=== PATIENT | male | born 1985 | race Caucasian/White ===

== ENCOUNTER 2017-10-13 22:44 | Inpatient (IN) | payer BC ==
[~2017-10-13] VITALS: Ht 165.1 cm; Wt 74.4 kg
[2017-10-13 23:40] LABS: BASOPHIL % 0.1 % (0-2); PLATELET COUNT 322 x10^3mcL (130-400); RED CELL DISTRIBUTION WIDTH 12.7 % (11.5-14.5)
[2017-10-13 23:54] LABS: ALBUMIN 3.7 g/dL (3.4-5.0); BILIRUBIN TOTAL 0.9 mg/dL (0.20-1.00); CARBON DIOXIDE 26.5 mmol/L (21-32); POTASSIUM SERUM 4.8 mmol/L (3.5-5.1); TOTAL PROTEIN, SERUM 6.5 g/dL (6.4-8.2)
[2017-10-14] VITALS (11 sets, daily range): BP systolic 109–135; BP diastolic 43–75
[2017-10-14] LABS: CALCIUM 8.2 mg/dL (8.5-10.1)
[2017-10-14] MEDS ORDERED: PANTOPRAZOLE SO40 M1 PO (02:31)
[2017-10-14] MEDS ORDERED: WELLBUTRIN XL150 M1 PO (02:31)
[2017-10-14 03:46] LABS: BASOPHIL % 0.1 % (0-2); PLATELET COUNT 264 x10^3mcL (130-400); RED CELL DISTRIBUTION WIDTH 12.4 % (11.5-14.5)
[2017-10-14 04:02] LABS: T3 TOTAL 0.81 ng/mL
[2017-10-14 04:33] LABS: FREE T4 1.35 ng/dL (0.76-1.46); T4(THYROXINE) 9.9 ug/dL (4.7-13.3)
[2017-10-14 05:34] LABS: MAGNESIUM 2.5 mg/dL (1.8-2.4)
[2017-10-14 05:35] LABS: CHOLESTEROL/HDL RATIO 2.2
[2017-10-14 06:57] LABS: BASOPHIL % 0.2 % (0-2); PLATELET COUNT 260 x10^3mcL (130-400); RED CELL DISTRIBUTION WIDTH 12.9 % (11.5-14.5)
[2017-10-14 13:15] LABS: PLATELET COUNT 216 x10^3mcL (130-400); RED CELL DISTRIBUTION WIDTH 12.8 % (11.5-14.5)
[2017-10-14 13:30] LABS: BASOPHIL % 0 % (0-2)
[2017-10-14 16:47] LABS: ALKALINE PHOSPHATASE 46 U/L (46-116); ALT/SGPT 32 U/L (16-63); AST/SGOT 16 U/L (15-37); BILIRUBIN TOTAL 0.7 mg/dL (0.20-1.00); CALCIUM 7.6 mg/dL (8.5-10.1); CARBON DIOXIDE 28.3 mmol/L (21-32); CHLORIDE SERUM 103 mmol/L (98-107); CREATININE SERUM 1.3 mg/dL (0.7-1.3); GFR1 > 60 mL/min; GLUCOSE SERUM 116 mg/dL (74-106); POTASSIUM SERUM 4.4 mmol/L (3.5-5.1); SODIUM SERUM 134 mmol/L (136-145)
[2017-10-14 16:52] LABS: ALBUMIN 3.1 g/dL (3.4-5.0); TOTAL PROTEIN, SERUM 5.5 g/dL (6.4-8.2)
[2017-10-14 20:41] LABS: BASOPHIL % 0.3 % (0-2); PLATELET COUNT 158 x10^3mcL (130-400); RED CELL DISTRIBUTION WIDTH 12.7 % (11.5-14.5)
[2017-10-14 20:58] LABS: ALKALINE PHOSPHATASE 41 U/L (46-116); ALT/SGPT 30 U/L (16-63); AST/SGOT 16 U/L (15-37); BILIRUBIN TOTAL 0.6 mg/dL (0.20-1.00); CALCIUM 7.6 mg/dL (8.5-10.1); CARBON DIOXIDE 26.9 mmol/L (21-32); CHLORIDE SERUM 105 mmol/L (98-107); GFR1 > 60 mL/min; GLUCOSE SERUM 114 mg/dL (74-106); PHOSPHOROUS 2.6 mg/dL (2.5-4.9); POTASSIUM SERUM 4.6 mmol/L (3.5-5.1); SODIUM SERUM 134 mmol/L (136-145)
[2017-10-14 21:01] LABS: ALBUMIN 2.9 g/dL (3.4-5.0); TOTAL PROTEIN, SERUM 5.3 g/dL (6.4-8.2)
[2017-10-14 22:29] LABS: PLATELET COUNT 183 x10^3mcL (130-400); RED CELL DISTRIBUTION WIDTH 12.8 % (11.5-14.5)
[2017-10-14 22:31] LABS: BASOPHIL % 0 % (0-2)
[2017-10-15] VITALS (7 sets, daily range): BP systolic 123–148; BP diastolic 65–82
[2017-10-15 00:45] LABS: microscopic required? NO
[2017-10-15 00:52] LABS: urine erythrocyte NEGATIVE (NEGATIVE)
[2017-10-15 01:17] LABS: AMPHETAMINE QUAL UR NONE DETECTED (NEG <=1000)
[2017-10-15 03:56] LABS: PLATELET COUNT 167 x10^3mcL (130-400); RED CELL DISTRIBUTION WIDTH 13.1 % (11.5-14.5)
[2017-10-15 03:57] LABS: BASOPHIL % 0.2 % (0-2)
[2017-10-15 04:09] LABS: CALCIUM 8.1 mg/dL (8.5-10.1); CHLORIDE SERUM 102 mmol/L (98-107); CREATININE SERUM 1.1 mg/dL (0.7-1.3); GFR1 > 60 mL/min; GLUCOSE SERUM 110 mg/dL (74-106); PHOSPHOROUS 3.8 mg/dL (2.5-4.9); POTASSIUM SERUM 4.4 mmol/L (3.5-5.1); SODIUM SERUM 136 mmol/L (136-145)
[2017-10-15 08:43] LABS: BASOPHIL % 0.3 % (0-2); PLATELET COUNT 150 x10^3mcL (130-400); RED CELL DISTRIBUTION WIDTH 13.2 % (11.5-14.5)
[2017-10-15 09:36] LABS: ALKALINE PHOSPHATASE 42 U/L (46-116); ALT/SGPT 31 U/L (16-63); AST/SGOT 19 U/L (15-37); BILIRUBIN TOTAL 0.7 mg/dL (0.20-1.00); CARBON DIOXIDE 31.4 mmol/L (21-32); CHLORIDE SERUM 103 mmol/L (98-107); GFR1 > 60 mL/min; GLUCOSE SERUM 93 mg/dL (74-106); POTASSIUM SERUM 3.9 mmol/L (3.5-5.1); SODIUM SERUM 136 mmol/L (136-145)
[2017-10-15 09:37] LABS: ALBUMIN 3.1 g/dL (3.4-5.0); TOTAL PROTEIN, SERUM 5.8 g/dL (6.4-8.2)
[2017-10-15 19:57] LABS: BASOPHIL % 0.2 % (0-2); PLATELET COUNT 168 x10^3mcL (130-400); RED CELL DISTRIBUTION WIDTH 12.7 % (11.5-14.5)
[2017-10-16 05:03] VITALS: BP 126/61
[2017-10-16 06:43] LABS: BASOPHIL % 0.3 % (0-2); PLATELET COUNT 156 x10^3mcL (130-400); RED CELL DISTRIBUTION WIDTH 12.8 % (11.5-14.5)
[2017-10-16 07:05] LABS: CALCIUM 8.3 mg/dL (8.5-10.1); CARBON DIOXIDE 29.4 mmol/L (21-32); CHLORIDE SERUM 103 mmol/L (98-107); CREATININE SERUM 0.9 mg/dL (0.7-1.3); GFR1 > 60 mL/min; GLUCOSE SERUM 114 mg/dL (74-106); MAGNESIUM 2.1 mg/dL (1.8-2.4); PHOSPHOROUS 2.7 mg/dL (2.5-4.9); POTASSIUM SERUM 3.7 mmol/L (3.5-5.1); SODIUM SERUM 137 mmol/L (136-145)
[2017-10-16 09:20] VITALS: BP 148/92
[2017-10-16 14:21] VITALS: BP 155/87; Ht 165.1 cm; Wt 74.4 kg
[2017-10-16 17:50] VITALS: BP 140/83
[2017-10-16 19:30] VITALS: BP 137/86
[2017-10-17 05:37] VITALS: BP 139/83
[2017-10-17 06:44] LABS: CALCIUM 8.6 mg/dL (8.5-10.1); CHLORIDE SERUM 102 mmol/L (98-107); CREATININE SERUM 0.9 mg/dL (0.7-1.3); GFR1 > 60 mL/min; GLUCOSE SERUM 130 mg/dL (74-106); POTASSIUM SERUM 3.5 mmol/L (3.5-5.1); SODIUM SERUM 138 mmol/L (136-145)
[2017-10-17 06:48] LABS: BASOPHIL % 0.3 % (0-2); PLATELET COUNT 209 x10^3mcL (130-400)
[2017-10-17] MEDS ORDERED: BACO TOP (09:12)
[2017-10-17] MEDS ORDERED: APAP/HYDROCODON1 T13 PO (09:13)
[2017-10-17 09:31] VITALS: BP 151/85
[2017-10-17] MEDS ORDERED: COL100 PO (09:38)
[2017-10-17 10:11] VITALS: BP 151/85
== END 2017-10-17 14:00 | disposition home or self-care (01) | DRG 853 ==
LOC: ED 22:44 → DU 10-14 02:26 → MU 10-17 07:44
PROVIDERS: Emergency Medicine; Family Medicine; Student in an Organized Health Care Education/Training Program; Surgery
PROC: 0W3P4ZZ Control Bleeding in Gastrointestinal Tract, Percutaneous Endoscopic Approach (ICD-10-PCS; principal; 2017-10-14 19:30)
DX: A41.9 Sepsis, unspecified organism (principal); T81.19XA Other postprocedural shock, initial encounter; N17.0 Acute kidney failure with tubular necrosis; K66.1 Hemoperitoneum; E87.1 Hypo-osmolality and hyponatremia; E44.0 Moderate protein-calorie malnutrition; R18.8 Other ascites; E86.0 Dehydration; D50.0 Iron deficiency anemia secondary to blood loss (chronic); E83.41 Hypermagnesemia; E83.39 Other disorders of phosphorus metabolism; F32.9 Major depressive disorder, single episode, unspecified; L01.03 Bullous impetigo; K21.9 Gastro-esophageal reflux disease without esophagitis; Z90.49 Acquired absence of other specified parts of digestive tract; Z83.79 Family history of other diseases of the digestive system; Z68.29 Body mass index [BMI] 29.0-29.9, adult
CPT/HCPCS: 83880; 84439; 94150; J0330; J1885; J2175; J2250; J2270; J2405; J2543; J2704; J2710; J3010; J3490; J7030; J7040; J7050; J7620; P9016; P9059; Q0092; Q0163; Q9967

== ENCOUNTER 2017-10-22 10:22 | Emergency (ER) | payer BC ==
[~2017-10-22] VITALS: Ht 165.1 cm; Wt 70.8 kg
[~2017-10-22 10:22] MED LIST: APAP/HYDROCODON1 T13 PO; BACO TOP; COL100 PO; PANTOPRAZOLE SO40 M1 PO; WELLBUTRIN XL150 M1 PO
[2017-10-22 10:26] VITALS: Ht 165.1 cm; Wt 70.8 kg
[2017-10-22 11:41] VITALS: BP 135/82
== END 2017-10-22 11:41 | disposition home or self-care (01) ==
LOC: ED 10:22
DX: K21.9 Gastro-esophageal reflux disease without esophagitis (principal); Z48.03 Encounter for change or removal of drains; Z90.89 Acquired absence of other organs